=== PATIENT | female | born 1980 | race Caucasian/White ===

== ENCOUNTER 2017-07-22 12:04 | Inpatient (IN) | payer OTHER ==
[2017-07-22] MEDS ORDERED: Nalbuphine 20 MG/ML 1 ML Syringe IVPUSH PRN (12:36)
[2017-07-22] MEDS ORDERED: Sodium Chloride 0.9% 10 ML Syringe FLUSH PRN (12:36)
[2017-07-22] MEDS ORDERED: Oxytocin/Lactated Ringers 10 UNIT/1,000 ML BAG IV SCH ×2 (12:45)
[2017-07-22] MEDS: Lactated Ringers 1,000 ML IV SCH ×4 (15:49→20:52)
[2017-07-22] MEDS ORDERED: fentaNYL 100 MCG/2 ML SDV EPIDUR PRN (16:14)
[2017-07-22] MEDS ORDERED: ePHEDrine 50 MG/ML SDV IVPUSH PRN (16:14)
[2017-07-22] MEDS ORDERED: diphenhydrAMINE 50 MG/ML SDV IVPUSH PRN (16:14)
--- NOTE | 2017-07-22 16:27 | PCM.PREANE ---
Preanesthetic Assessment - Anesthesia/Transfusion/Family Hx Anesthesia History: Prior Anesthesia Without Reaction Family History of Anesthesia Reaction: No Transfusion History: No Prior Transfusion(s) - Review of Systems General: No Symptoms Pulmonary: No Symptoms Cardiovascular: No Symptoms Gastrointestinal: No Symptoms Neurological: No Symptoms Other: Reports: None - Physical Assessment Pulse: 91 Respiratory Rate: 15 Blood Pressure: 140/88 Vital Signs: Last Vital Signs Temp 97.9 F 07/22/17 12:36 Pulse 91 07/22/17 14:00 Resp 15 07/22/17 12:36 BP 140/88 07/22/17 14:00 Pulse Ox Height: 5 ft 4 in Weight: 99.337 kg ASA Class: 2 Mental Status: Alert & Oriented x3 Airway Class: Mallampati = 1 Dentition: Reports: Normal Dentition Thyro-Mental Finger Breadths: 3 Mouth Opening Finger Breadths: 3 ROM/Head Extension: Full Lungs: Clear to Auscultation, Normal Respiratory Effort Cardiovascular: Regular Rate, Regular Rhythm - Lab Values: Laboratory Last Values WBC 9.72 K/mm3 (3.98-10.04) 07/22/17 13:12 RBC 4.20 M/mm3 (3.98-5.22) 07/22/17 13:12 Hgb 12.4 gm/L (11.2-15.7) 07/22/17 13:12 Hct 35.8 % (34.1-44.9) 07/22/17 13:12 MCV 85.2 fl (79.4-94.8) 07/22/17 13:12 MCH 29.5 pg (25.6-32.2) 07/22/17 13:12 MCHC 34.6 g/dl (32.2-35.5) 07/22/17 13:12 RDW Std Deviation 39.8 fL (36.4-46.3) 07/22/17 13:12 Plt Count 140 K/mm3 (182-369) L 07/22/17 13:12 MPV 9.8 fl (9.4-12.3) 07/22/17 13:12 Neut % (Auto) 73.3 % (34.0-71.1) H 07/22/17 13:12 Lymph % (Auto) 18.7 % (19.3-51.7) L 07/22/17 13:12 [place] % (Auto) 7.2 % (4.7-12.5) 07/22/17 13:12 Eos % (Auto) 0.3 (0.7-5.8) L 07/22/17 13:12 Baso % (Auto) 0.2 % (0.1-1.2) 07/22/17 13:12 Neut # (Auto) 7.12 K/mm3 (1.56-6.13) H 07/22/17 13:12 Lymph # (Auto) 1.82 K/mm3 (1.18-3.74) 07/22/17 13:12 [place] # (Auto) 0.70 K/mm3 (0.24-0.36) H 07/22/17 13:12 Eos # (Auto) 0.03 K/mm3 (0.04-0.36) L 07/22/17 13:12 Baso # (Auto) 0.02 K/mm3 (0.01-0.08) 07/22/17 13:12 - Allergies Allergies/Adverse Reactions: Allergies Allergy/AdvReac Type Severity Reaction Status Date / Time No Known Allergies Allergy Verified 07/22/17 12:34 - Blood Blood Available: No - Acknowledgements Anesthesia Type Planned: Epidural Pt an Appropriate Candidate for the Planned Anesthesia: Yes Alternatives and Risks of Anesthesia Discussed w Pt/Guardian: Yes Pt/Guardian Understands and Agrees with Anesthesia Plan: Yes PreAnesthesia Questionnaire Cardiovascular History: Reports: None Respiratory History: Reports: None Gastrointestinal History: Reports: GERD (with preg) OCULAR PATHOLOGIST History: Reports: : 3 (38 weeks) Para: 2 - Past Surgical History GI Surgical History: Reports: Other (See Below) (rectal fistula) - SUBSTANCE USE Smoking Status *Q: Former Smoker (quit 6 years ago) Tobacco Use Within Last Twelve Months: No Second Hand Smoke Exposure: No Days Per Week of Alcohol Use: 0 Recreational Drug Use History: No - HOME MEDS Home Medications: Home Meds Vit W-Ca,Fe,FA(<1 mg) [ Vitamins] 1 each PO DAILY 07/22/17 [ History] - CURRENT (IN HOUSE) MEDS Current Meds: Current Medications Diphenhydramine HCl (Benadryl) 25 mg IVPUSH Q6H PRN PRN Reason: pruritis Ephedrine Sulfate (Ephedrine Sulfate) 5 mg IVPUSH ASDIRECTED PRN PRN Reason: Hypotension Fentanyl (Sublimaze) 100 mcg EPIDUR Q3H PRN PRN Reason: Pain Fentanyl/Bupivacaine HCl (Fentanyl/Bupivacaine/Ns 2 Mcg-0.125% 100 Ml) 100 ml EPIDUR ASDIRECTED REINA Lactated Ringer's (Ringers, Lactated) 1,000 mls @ 100 mls/hr IV ASDIRECTED REINA Last Admin: 07/22/17 15:49 Dose: 100 mls/hr Oxytocin/Lactated Ringer's (Pitocin In Lr 10 Units/1,000 Ml) 10 unit in 1,000 mls @ 12 mls/hr IV TITRATE REINA; Protocol Last Admin: 07/22/17 16:02 Dose: 2 munits/min, 12 mls/hr Oxytocin/Lactated Ringer's (Pitocin In Lr 10 Units/1,000 Ml) 10 unit in 1,000 mls @ 500 mls/hr IV .CONTINUOUS REINA Nalbuphine HCl (Nubain) 10 mg IVPUSH Q2H PRN PRN Reason: Pain (moderate 4-6) Sodium Chloride (Saline Flush) 10 ml FLUSH ASDIRECTED PRN PRN Reason: Keep Vein Open
[2017-07-22] MEDS: Bupivacaine/fentaNYL/NS 100 ML Bag EPIDUR SCH ×2 (16:45→23:38)
[2017-07-23] MEDS ORDERED: Bupivacaine 0.25% 10 ML SDV ONE (01:00)
--- NOTE | 2017-07-23 04:18 | PCM.LDHP ---
L&D History of Present Illness - General Date of Service: 07/22/17 Admit Problem/Dx: Patient Status Order with Admit Dx/Problem 07/22/17 12:36 Patient Status [ADT] Routine Admission Diagnosis/Problem Admission Diagnosis/Problem Source of Information: Patient - History of Present Illness Introduction:: 36-year-old 3 para 2001 female at 38 weeks 1 day presents complaining of spontaneous rupture of membranes at 3 AM (approximately 10 hours ago). No contractions. Needle care has been with Dr. Horan without complications. She is O+,rubella nonimmune, syphilis nonreactive, hepatitis B surface antigen not reactive, HIV nonreactive, Pap smear was normal with negative cotesting, gonorrhea and chlamydia negative, urine culture negative, and she declined aneuploidy screening and had a normal 1 hour. Pain Score: 4 Associated Symptoms: Reports: vaginal fluid - Related Data Allergies/Adverse Reactions: Allergies Allergy/AdvReac Type Severity Reaction Status Date / Time No Known Allergies Allergy Verified 07/22/17 12:34 Home Medications: Home Meds Vit W-Ca,Fe,FA(<1 mg) [ Vitamins] 1 each PO DAILY 07/22/17 [ History] Past Medical History Cardiovascular History: Reports: None Respiratory History: Reports: None Gastrointestinal History: Reports: GERD (with preg) USED CAR RENOVATOR History: Reports: - Past Surgical History GI Surgical History: Reports: Other (See Below) (rectal fistula) Social & Family History - Family History Family Medical History: Noncontributory - Tobacco Use Smoking Status *Q: Former Smoker (quit 6 years ago) Used Tobacco, but Quit: Yes Month/Year Tobacco Last Used: 6 years ago Second Hand Smoke Exposure: No - Caffeine Use Caffeine Use: Reports: None - Alcohol Use Days Per Week of Alcohol Use: 0 - Recreational Drug Use Recreational Drug Use: No H&P Review of Systems - Review of Systems: Review Of Systems: ROS reveals no pertinent complaints other than HPI. General: Reports: No Symptoms. Denies: Fever, Chills HEENT: Reports: No Symptoms Pulmonary: Reports: No Symptoms Cardiovascular: Reports: No Symptoms Gastrointestinal: Reports: No Symptoms Genitourinary: Reports: Other (see hpi) Musculoskeletal: Reports: No Symptoms Skin: Reports: No Symptoms Psychiatric: Reports: No Symptoms Neurological: Reports: No Symptoms Hematologic/Lymphatic: Reports: No Symptoms Immunologic: Reports: No Symptoms L&D Exam - Exam Exam: See Below - Vital Signs Vital Signs: Last Vital Signs Temp 36.6 C 07/22/17 12:36 Pulse 81 07/23/17 03:00 Resp 15 07/22/17 16:22 BP 126/79 07/23/17 03:00 Pulse Ox Weight: 99.337 kg - OB Specific Fundal Height In cm: 39 Contraction Intensity: Irritability Movement: Active Heart Tones: Present Heart Rate (FHR) Variability: Moderate (6-25 bmp) Presentation: Vertex - Carvalho Score Carvalho Score Cervix Position: Posterior Carvalho Score Consistency: Medium Carvalho Score Effacement: 31-50% Carvalho Score Dilation: 1-2 cm Carvalho Score 's Station: -3 Carvalho Score Total: 3 - Exam General: Alert, Oriented HEENT: PERRLA, Conjunctiva Clear, EACs Clear, EOMI, Hearing Intact, Mucosa Moist & [place], Nares Patent, Normal Nasal Septum, Posterior Pharynx Clear, TMs Clear Neck: Supple, Trachea Midline Lungs: Clear to Auscultation, Normal Respiratory Effort Cardiovascular: Regular Rate, Regular Rhythm GI/Abdominal Exam: Normal Bowel Sounds, Soft, Non-Tender, No Organomegaly, No Distention, No Abnormal Bruit, No Mass, Pelvis Stable Genitourinary: Normal external exam, Normal bimanual exam, Normal speculum exam Back Exam: Normal Inspection, Full Range of Motion Extremities: Normal Inspection, Normal Range of Motion, Non-Tender, No Pedal Edema, Normal Capillary Refill Skin: Warm, Dry, Intact Neurological: Cranial Nerves Intact, Reflexes Equal Bilateral Psychiatric: Alert, Normal Affect, Normal Mood - Patient Data Lab Results Last 24 hrs: Laboratory Results - last 24 hr 07/22/17 Range/Units 13:12 WBC 9.72 (3.98-10.04) K/mm3 RBC 4.20 (3.98-5.22) M/mm3 Hgb 12.4 (11.2-15.7) gm/L Hct 35.8 (34.1-44.9) % MCV 85.2 (79.4-94.8) fl MCH 29.5 (25.6-32.2) pg MCHC 34.6 (32.2-35.5) g/dl RDW Std Deviation 39.8 (36.4-46.3) fL Plt Count 140 L (182-369) K/mm3 MPV 9.8 (9.4-12.3) fl Neut % (Auto) 73.3 H (34.0-71.1) % Lymph % (Auto) 18.7 L (19.3-51.7) % [place] % (Auto) 7.2 (4.7-12.5) % Eos % (Auto) 0.3 L (0.7-5.8) Baso % (Auto) 0.2 (0.1-1.2) % Neut # (Auto) 7.12 H (1.56-6.13) K/mm3 Lymph # (Auto) 1.82 (1.18-3.74) K/mm3 [place] # (Auto) 0.70 H (0.24-0.36) K/mm3 Eos # (Auto) 0.03 L (0.04-0.36) K/mm3 Baso # (Auto) 0.02 (0.01-0.08) K/mm3 Result Diagrams: 07/22/17 13:12 Problem List Initiated/Reviewed/Updated: Yes Orders Last 24hrs: Premature rupture of membranes with minimal contractions. Patient had similar situation with both of her prior deliveries and is fairly reluctant to start Pitocin at this time. Afebrile and reassuring monitoring. Did discuss at about 3 PM once the 12 hour marker like her to at least be having some contractions or agreed to Pitocin and she seems amenable to this.
--- NOTE | 2017-07-23 04:23 | PCM.SN ---
- Free Text/Narrative Note: Stage I - patient presented with spontaneous rupture of membranes. Minimal contractions epidural for anesthesia and Pitocin augmentation. Progressed nicely to complete with overall reassuring heart tones. Stage II - spontaneous vaginal delivery over small first-degree laceration, viable female weight 30/3/60 grams Apgars 8/9 0349. to maternal abdomen. Vigorous cry. Cord clamped and cut after 60 seconds. Stage III - spontaneous vaginal delivery of intact placenta. Estimated blood loss 200. Small first-degree midline laceration repaired with one stitch of 3-0 Vicryl.
[2017-07-23] MEDS ORDERED: Hydrocortisone Acetate 25 MG Supp RECTAL PRN (04:30)
[2017-07-23] MEDS ORDERED: Lanolin 100% Cream 7 GM Tube TOP PRN (04:30)
[2017-07-23] MEDS ORDERED: Docusate Sodium 100 MG Cap PO PRN (04:30)
[2017-07-23] MEDS ORDERED: Witch Hazel Medicated Pads 100/Jar TOP PRN (04:30)
[2017-07-23] MEDS ORDERED: Benzocaine/Menthol 20%-0.5% Spray 56 GM Canister TOP PRN (04:30)
[2017-07-23] MEDS ORDERED: Acetaminophen 325 MG Tab PO PRN (04:30)
[2017-07-23] MEDS: Ibuprofen 600 MG Tab PO PRN ×3 (08:50→22:02)
[2017-07-23] MEDS ORDERED: Measles, Mumps & Rubella Vaccine 0.5 ML SDV SUBCUT ONE (21:20)
[2017-07-24] MEDS: Ibuprofen 600 MG Tab PO PRN (04:45)
--- NOTE | 2017-07-24 17:21 | PCM.DCSUM1 ---
Discharge Summary - Hospital Course Brief History: Admitted for augmentation of labor. - Discharge Data Discharge Date: 07/24/17 Discharge Disposition: Home, Self-Care 01 Condition: Good - Patient Summary/Data Hospital Course: Unremarkable course - Patient Instructions Diet: Regular Diet as Tolerated Activity: As Tolerated Driving: May Drive Today Showering/Bathing: May Shower Notify Provider of: Fever, Increased Pain, Swelling and Redness, Drainage, Nausea and/or Vomiting - Discharge Plan Home Medications: Home Meds Vit W-Ca,Fe,FA(<1 mg) [ Vitamins] 1 each PO DAILY 07/22/17 [ History] Acetaminophen [Tylenol] 650 mg PO Q6H PRN tablet 07/24/17 [Rx] Benzocaine/Menthol [Dermoplast Pain Relief [place]] 56 gm TOP ASDIRECTED PRN canister 07/24/17 [Rx] Docusate Sodium [Colace] 100 mg PO BID PRN cap 07/24/17 [Rx] Ibuprofen [Motrin] 600 mg PO Q6H PRN tablet 07/24/17 [Rx] Lanolin [Lansinoh HPA] 7 gram TOP ASDIRECTED PRN tube 07/24/17 [Rx] Witch Chantel [Tucks] 1 pad TOP ASDIRECTED PRN pad 07/24/17 [Rx] Patient Handouts: Home Care Instructions for Mom, Vaginal Delivery, Care After , Care of a Perineal Tear Referrals: Kimi Lei MD [Physician] - (Follow up in 6 weeks) - Discharge Summary/Plan Comment DC Time >30 min.: No - General Info Date of Service: 07/24/17 Functional Status: Reports: Pain Controlled - Review of Systems General: Reports: No Symptoms HEENT: Reports: No Symptoms Pulmonary: Reports: No Symptoms Cardiovascular: Reports: No Symptoms Gastrointestinal: Reports: No Symptoms Genitourinary: Reports: No Symptoms Musculoskeletal: Reports: No Symptoms Skin: Reports: No Symptoms Neurological: Reports: No Symptoms Psychiatric: Reports: No Symptoms - Patient Data Vitals - Most Recent: Last Vital Signs Temp 36.8 C 07/24/17 09:10 Pulse 94 07/24/17 09:10 Resp 18 07/24/17 09:10 BP 126/77 07/24/17 09:10 Pulse Ox 98 07/24/17 09:10 Weight - Most Recent: 99.337 kg I&O - Last 24 hours: Intake & Output 07/24/17 07/24/17 07/24/17 06:59 14:59 22:59 Intake Total 120 Balance 120 Med Orders - Current: Current Medications Discontinued Medications Acetaminophen (Tylenol) 650 mg PO Q6H PRN PRN Reason: mild pain or fever Benzocaine/Menthol (Dermoplast Pain Relief [place]) 0 gm TOP ASDIRECTED PRN PRN Reason: Perineal Comfort Measure Last Admin: 07/23/17 12:42 Dose: 1 spray Bupivacaine HCl (Sensorcaine-Mpf 0.25%) 10 ml .ROUTE .STK-MED ONE Stop: 07/23/17 01:01 Diphenhydramine HCl (Benadryl) 25 mg IVPUSH Q6H PRN PRN Reason: pruritis Docusate Sodium (Colace) 100 mg PO BID PRN PRN Reason: Constipation Emollient Ointment (Lansinoh Hpa) 0 gm TOP ASDIRECTED PRN PRN Reason: Sore Nipples Ephedrine Sulfate (Ephedrine Sulfate) 5 mg IVPUSH ASDIRECTED PRN PRN Reason: Hypotension Last Admin: 07/22/17 17:15 Dose: 10 mg Fentanyl (Sublimaze) 100 mcg EPIDUR Q3H PRN PRN Reason: Pain Last Admin: 07/22/17 16:45 Dose: 100 mcg Fentanyl/Bupivacaine HCl (Fentanyl/Bupivacaine/Ns 2 Mcg-0.125% 100 Ml) 100 ml EPIDUR ASDIRECTED REINA Last Admin: 07/22/17 23:38 Dose: 100 ml Hydrocortisone Acetate (Anucort-Hc) 25 mg RECTAL BID PRN PRN Reason: Hemorrhoid pain Lactated Ringer's (Ringers, Lactated) 1,000 mls @ 100 mls/hr IV ASDIRECTED REINA Last Admin: 07/22/17 20:52 Dose: 100 mls/hr Oxytocin/Lactated Ringer's (Pitocin In Lr 10 Units/1,000 Ml) 10 unit in 1,000 mls @ 12 mls/hr IV TITRATE REINA; Protocol Last Titration: 07/22/17 21:45 Dose: 10 munits/min, 60 mls/hr Oxytocin/Lactated Ringer's (Pitocin In Lr 10 Units/1,000 Ml) 10 unit in 1,000 mls @ 500 mls/hr IV .CONTINUOUS REINA Ibuprofen (Motrin) 600 mg PO Q6H PRN PRN Reason: Mild pain or fever Last Admin: 07/24/17 04:45 Dose: 600 mg Measles/Mumps/Rubella Vaccine Live (M-M-R Ii Vaccine) 0.5 ml SUBCUT .ONCE ONE Stop: 07/23/17 21:21 Last Admin: 07/23/17 21:31 Dose: 0.5 ml Nalbuphine HCl (Nubain) 10 mg IVPUSH Q2H PRN PRN Reason: Pain (moderate 4-6) Sodium Chloride (Saline Flush) 10 ml FLUSH ASDIRECTED PRN PRN Reason: Keep Vein Open Witch Chantel (Tucks) 1 pad TOP ASDIRECTED PRN PRN Reason: Hemorrhoid pain Last Admin: 07/23/17 12:43 Dose: 1 pad - Exam General: Reports: Alert, Oriented HEENT: Reports: Pupils Equal, Pupils Reactive, EOMI, Mucous Membr. Moist/[place] Neck: Reports: Supple Lungs: Reports: Clear to Auscultation, Normal Respiratory Effort Cardiovascular: Reports: Regular Rate, Regular Rhythm GI/Abdominal Exam: Normal Bowel Sounds, Soft, Non-Tender, No Organomegaly, No Distention, No Abnormal Bruit, No Mass, Pelvis Stable (Female) Exam: Normal External Exam, Normal Speculum Exam, Normal Bimanual Exam Back Exam: Reports: Normal Inspection, Full Range of Motion Extremities: Normal Inspection, Normal Range of Motion, Non-Tender, No Pedal Edema, Normal Capillary Refill Skin: Reports: Warm, Dry, Intact Wound/Incisions: Reports: Healing Well Neurological: Reports: No New Focal Deficit Psy/Mental Status: Reports: Alert, Normal Affect, Normal Mood
== END 2017-07-24 09:40 | disposition home or self-care (01) | DRG 775 ==
LOC: JD.OBCHECK 12:04 → JD.OB 12:06 → JD.OBCHECK 12:36 → JD.OB 12:36 → OBSVTOIN 07-23 03:49 → JD.MS 07-23 06:35 → JD.OB 07-23 13:16
PROVIDERS: ADMIT Obstetrics & Gynecology; ATTEND Obstetrics & Gynecology
PROC: 10E0XZZ Delivery of Products of Conception, External Approach (ICD-10-PCS; principal; 2017-07-23)
PROC: 0HQ9XZZ Repair Perineum Skin, External Approach (ICD-10-PCS; 2017-07-23)
PROC: 3E0S3GC Introduction of Other Therapeutic Substance into Epidural Space, Percutaneous Approach (ICD-10-PCS; 2017-07-23)
DX: O42.02 Full-term premature rupture of membranes, onset of labor within 24 hours of rupture (principal); Z3A.38 38 weeks gestation of pregnancy; Z37.0 Single live birth; O70.0 First degree perineal laceration during delivery
CPT/HCPCS: 36415; 51702; 59020; 59300; 59409; 85025; 90471; 90707; A9270-GY; J2590; J3010; J7120